=== PATIENT | female | born 1955 | race Caucasian/White ===

== ENCOUNTER → 2016-07-25 | Outpatient (CLI) | payer BC | LOC: GMAL 10:56 | PROVIDERS: ATTEND Family Medicine | DX: D51.3 Other dietary vitamin B12 deficiency anemia (principal); E03.9 Hypothyroidism, unspecified; E55.9 Vitamin D deficiency, unspecified ==

== ENCOUNTER → 2016-09-08 | Outpatient (CLI) | payer BC | END | disposition home or self-care (01) | LOC: GMAL 12:21 | PROVIDERS: ATTEND Family Medicine | DX: E03.9 Hypothyroidism, unspecified (principal) ==

== ENCOUNTER 2016-10-30 18:03 | Emergency (ER) | payer BC ==
--- NOTE | 2016-10-30 18:27 | ED.PDOC ---
History of Present Illness - General Chief Complaint: General Stated Complaint: Left flank pain/shoulder pain Time Seen by Provider: 10/30/16 18:21 Source: patient, RN notes reviewed, Vital Signs reviewed Exam Limitations: no limitations - History of Present Illness Initial Comments: Patient presents to ER via private vehicle with c/o intermittent sharp, stabbing L flank pain for the past 14 hours. Pain is worse with deep breathing and is now extending up her back to her neck and shoulder. No recent injury or illness. No fever or chills. She did have a ARIAS earlier but is resolved now. No Urinary symptoms. Normal bowel movement today. Timing/Duration: intermittent - over paast 14 hours Severity: severe Improving Factors: immobilization Worsening Factors: other - deep breath Associated Symptoms: headaches Allergies/Adverse Reactions: Allergies NO KNOWN ALLERGY Allergy (Verified 10/30/16 18:22) Home Medications: Ambulatory Orders Azithromycin Tab [Zithromax] 250 mg PO DAILY #4 tab 10/30/16 Citalopram Hydrobromide 20 mg PO 10/30/16 Estradiol 1 mg PO 10/30/16 Levothyroxine Sodium 10/30/16 Review of Systems - Review of Systems Constitutional: States: no symptoms reported. Denies: chills, fever EENTM: States: no symptoms reported Respiratory: States: other - pain with deep breathing. Denies: cough, short of breath Cardiology: States: no symptoms reported. Denies: chest pain Gastrointestinal/Abdominal: States: no symptoms reported Genitourinary: States: no symptoms reported Musculoskeletal: States: back pain - L flank, L upper back, neck pain - Left Skin: States: no symptoms reported Neurological: States: headache. Denies: numbness, paresthesia, tingling, weakness All other Systems: No Change from Baseline Past Medical History (General) - Patient Medical History Hx Thyroid Disease: Yes - Social History Hx Alcohol Use: Yes - socially Family Medical History - Family History Mother Family History: Unknown Physical Exam - Physical Exam General Appearance: Alert, Comfortable, No apparent distress, Well Developed, Well Groomed, Well Hydrated, Well Nourished Neck: non-tender, full range of motion, supple, normal inspection Respiratory: chest non-tender, lungs clear, normal breath sounds, no respiratory distress, no accessory muscle use Cardiovascular/Chest: regular rate, rhythm, no gallop, no JVD, no murmur Back Exam: no CVA tenderness, no vertebral tenderness, muscle spasm - L thorascic paraspinous tenderness Extremity: normal range of motion, normal inspection Neurologic: alert, normal mood/affect, oriented x 3 Skin Exam: normal color, warm/dry Comments: Vital Signs 10/30/16 18:16 Temperature 99.4 F Pulse Rate [ 96 H Left Radial] Respiratory 16 Rate Blood Pressure 119/77 [Left Arm] O2 Sat by Pulse 97 Oximetry Progress - Progress Progress: 10/30/16 19:01 Zithromax 500mg PO given - Results/Orders Results/Orders: Laboratory Tests 10/30/16 18:37 Urine Color Yellow Urine Appearance Clear Urine pH 6.0 Ur Specific [place] 1.020 Urine Protein Negative Urine Glucose (UA) Negative Urine Ketones Trace Urine Blood Negative Urine Nitrite Negative Urine Bilirubin Negative Urine Urobilinogen 0.2 Ur Leukocyte Esterase Negative Urine RBC 0 Urine WBC 1-3 Ur Epithelial Cells 5-10 Urine Bacteria 3+ H - EKG/XRAY/CT XRAY: chest - Retrocardiac infiltrate w/ sm L sided effusion Departure - Departure Clinical Impression: Pleurisy with effusion, with bacterial cause Pneumonia Qualifiers: Pneumonia type: due to unspecified organism Laterality: left Lung location: lower lobe of lung Qualified Code(s): J18.1 - Lobar pneumonia, unspecified organism Time of Disposition: 19:01 Disposition: Discharge to Home or Self Care Condition: Good Departure Forms: ED Discharge - Pt. Copy, Patient Portal Self Enrollment Instructions: DI for Pneumonia -- Adult Diet: resume usual diet Activity: increase activity as tolerated Referrals: Michael Gilliland III, MD [Primary Care Provider] - 1-2 Weeks Prescriptions: Azithromycin Tab [Zithromax] 250 mg PO DAILY #4 tab Home Medications: Ambulatory Orders Azithromycin Tab [Zithromax] 250 mg PO DAILY #4 tab 10/30/16 Citalopram Hydrobromide 20 mg PO 10/30/16 Estradiol 1 mg PO 10/30/16 Levothyroxine Sodium 10/30/16
--- NOTE | 2016-10-30 18:41 | RAD ---
EXAM DESCRIPTION: Chest,2 Views CLINICAL HISTORY: 60 years Female L flank pain, worse with breathing COMPARISON: None. FINDINGS: Heart size within normal limits. Mild S-type thoracolumbar scoliosis. There is a small amount of retrocardiac infiltrate on the left with small left effusion. Right lung appears clear. IMPRESSION: Small amount of retrocardiac infiltrate on the left with probable small left effusion. Findings may reflect acute infectious process Electronically signed by: Yuki Olivares 10/30/2016 6:40 PM CDT
[2016-10-30] MEDS ORDERED: AZITHROMYCIN 250 MG TAB PO ONE (18:59)
[2016-10-30 19:10] VITALS: BP 132/84; TEMP 99.3; O2SAT 96
== END 2016-10-30 19:10 | disposition home or self-care (01) ==
LOC: ER 18:03
DX: J18.1 Lobar pneumonia, unspecified organism (principal); J91.8 Pleural effusion in other conditions classified elsewhere; E07.9 Disorder of thyroid, unspecified
CPT/HCPCS: 71020; 81001; Q0144

== ENCOUNTER → 2016-11-02 | Outpatient (CLI) | payer BC | END | disposition home or self-care (01) | LOC: GMAL 11:59 | PROVIDERS: ATTEND Family Medicine | DX: E03.9 Hypothyroidism, unspecified (principal) ==

== ENCOUNTER → 2016-11-17 | Outpatient (CLI) | payer BC ==
--- NOTE | 2016-11-17 17:12 | RAD ---
EXAM DESCRIPTION: Chest,2 Views CLINICAL HISTORY: 60 years, Female, PNEUMONIA COMPARISON: October 30 FINDINGS: Slightly shallow inspiration. Previously noted infiltrate the left base improved. There is a small left effusion increased compared to prior study. Cardiac silhouette normal. No free air under right hemidiaphragm which appears mildly chronic elevated.. IMPRESSION: Infiltrate left base improved. Small left effusion slightly increased compared to prior. Normal heart size Electronically signed by: Anand Resendiz MD 11/17/2016 5:11 PM CDT
== END | disposition home or self-care (01) ==
LOC: RAD 10:00
PROVIDERS: ATTEND Family Medicine
DX: J18.9 Pneumonia, unspecified organism (principal)

== ENCOUNTER → 2016-12-19 | Outpatient (CLI) | payer BC ==
--- NOTE | 2016-12-20 11:38 | RAD ---
EXAM DESCRIPTION: Ankle,Left 3 Views CLINICAL HISTORY: 60 years, Female, ANKLE PAIN COMPARISON: FINDINGS: Three views do not demonstrate fracture or dislocation. Electronically signed by: Anand Resendiz MD 12/20/2016 11:36 AM CDT
== END ==
LOC: RAD 09:24
PROVIDERS: ATTEND Orthopaedic Surgery
DX: M25.572 Pain in left ankle and joints of left foot (principal)

== ENCOUNTER → 2018-12-11 | Outpatient (CLI) | payer BC | LOC: GMAL 10:26 | PROVIDERS: ATTEND Family Medicine | DX: Z00.01 Encounter for general adult medical examination with abnormal findings (principal) ==

== ENCOUNTER → 2019-04-29 | Outpatient (CLI) | payer BC ==
--- NOTE | 2019-04-29 13:06 | RAD ---
EXAM DESCRIPTION: Wrist,Right 3 Views CLINICAL HISTORY: 63 years Female, Pain in wrist COMPARISON: None available. FINDINGS: The visualized bones are poorly mineralized.No acute fracture or dislocation. Negative ulnar variance. Mild radiocarpal joint osteoarthritis. The soft tissues appear grossly unremarkable. IMPRESSION: Osteopenia. Negative ulnar variance. Mild radiocarpal joint osteoarthritis. Electronically signed by: Adeline Bhatt MD 04/29/2019 1:05 PM [facility]
== END ==
LOC: RAD 08:52
PROVIDERS: ATTEND Orthopaedic Surgery
DX: M19.031 Primary osteoarthritis, right wrist (principal); M85.831 Other specified disorders of bone density and structure, right forearm

== ENCOUNTER → 2020-01-02 | Outpatient (CLI) | payer MEDICARE, OTHER | LOC: GMAL 14:49 | PROVIDERS: ATTEND Family Medicine | DX: E53.8 Deficiency of other specified B group vitamins (principal); E03.9 Hypothyroidism, unspecified; E55.9 Vitamin D deficiency, unspecified; Z79.899 Other long term (current) drug therapy ==